=== PATIENT | female | born 1960 ===

== ENCOUNTER 2018-04-28 10:20 | Inpatient (IN) | payer BC ==
[~2018-04-28] VITALS: Ht 162.6 cm; Wt 120.0 kg
== END 2018-04-30 14:08 | disposition home or self-care (01) | DRG 390 ==
LOC: ER 10:20 → SEC-K 23:25 → SURH 04-29 01:54
PROC: BW21YZZ Computerized Tomography (CT Scan) of Abdomen and Pelvis using Other Contrast (ICD-10-PCS; principal; 2018-04-28)
DX: K56.690 Other partial intestinal obstruction (principal); K56.2 Volvulus; R14.0 Abdominal distension (gaseous)